=== PATIENT | male | born 1960 | race Caucasian/White ===

== ENCOUNTER 2022-04-21 07:08 | Outpatient (CLI) | payer BC | END 2022-04-21 07:09 | disposition home or self-care (01) | LOC: LAB.N 07:08 | PROVIDERS: ATTEND Physician Assistant | DX: Z53.9 Procedure and treatment not carried out, unspecified reason (principal) ==

== ENCOUNTER 2022-05-17 09:04 | Outpatient (CLI) | payer BC ==
--- NOTE | 2022-05-17 09:54 | SLEEP CARE CONSULTATION ---
Information from patient questionnaire entered by Colette Mcclellan MA. I have reviewed and concur with the information entered by Colette Mcclellan MA. This document represents the service I personally performed and the decisions made by me, Analisa Styles ARNP. History of Present Illness Service Date and Time: 05/17/2022 0904 Reason for Visit: New patient (ONSET 11/13/2016, NO PRIORS, ) Chief Complaint: reports: Snoring, Observed pauses in breathing Date of Onset: ON OFF 5 YEARS Usual bedtime: 930 PM Time it takes to fall asleep: 5 MINUTES Snores at night: Yes Observed to quit breathing while asleep: Yes Sleeps alone due to snoring: No Number of times waking at night: 6 X Reasons for waking at night: reports: Snoring, Gasping for air (once in a while), Pain, Bathroom Toss, Turn, or Twitch while sleeping: Yes (a little bit) Recalls having dreams: No Usually gets out of bed at: 0600 Feels refreshed in the morning: Yes (somewhat refreshed mostly) Morning headache: No Sleepy or fatigued during the day: No Ever fallen asleep while driving: No Takes day naps: No Dreams during day naps: Yes Prior sleep studies: No Additional HPI information: I had the pleasure of seeing JANICE MUÑIZ today regarding the possibility of him having a sleep disorder. His current complaints are observed pauses in breathing and snoring. He states his has encouraged him to come in to get checked due to his snoring, stopping breathing and gasping at the end of these pauses. He has been trying to pay more attention in the last 6 months. She is a new and is very concerned about these pauses in breathing. He is not as concerned but would like to check this out. He states he feels somewhat rested in the mornings. He feels energetic and alert during the day. He feels he is healthy overall. Patient states he did develop some high blood pressure about 10 years ago and was started on a low-dose of lisinopril. He states he does not like to take oral medication so he made some lifestyle changes. It was not very long and he was able to come off of the lisinopril and has not been back on blood pressure medication for the last 10 years. - Parasomnia Symptoms Ever been unable to move upon waking from sleep: No Walks in sleep: No Talks in sleep: No Ever acted out dreams in sleep: No Ever felt weak in the knees when startled or emotional: No Bothered by creepy, crawly, restless sensations in legs: Yes (often, leg cramps; when in bed) Problems with memory or concentration: No Subjective Initial [place] Sleepiness Scale score: 7 (05/17/2022) Past Medical History Past Medical History: reports: Hypertension (but has not needed medication for over ten years; rotator cuff surgery on both shoulders; both knees, meniscal surgery), Other (Heartburn, taking OTC meds) Social History 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 Patient is and lives in [place]. 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 Have you smoked in the past 12 months: No (NO) Cigarettes per day (20/pack): 20 Years of smokin Quit date: 2007 Smoking Pack Years: 30.0 Alcohol use: Yes Alcohol amount and frequency: 1 X DAILY Caffeine use: Yes Caffeine amount and frequency: 1 X DAILY Family History Family history of sleep disordered breathing: Yes Family Hx Sleep Apnea: Sibling: Snoring (MATERNAL SIDE), Sleep apnea - Treated Allergies and Home Medications Known drug allergies: No Drug allergies reviewed: Yes (NKDA) Home medication list reviewed: Yes Allergy and home medication list: Medications: OTC Omeprazole, prn Ibuprofen, prn Quinine, leg cramp pills, prn Review of Systems Weight gain over past 5 years: 20 lbs Cardiovascular: denies: high blood pressure Gastrointestinal: reports: heartburn Neurological: denies: headaches, head trauma Psychiatric: denies: anxiety, depression Ear/Nose/Throat: reports: tonsillectomy, wisdom teeth removed. denies: injury to nose Endocrine: reports: increased appetite. denies: thyroid disease Musculoskeletal: reports: joint pain, back pain, muscle pain or cramping Immunologic: denies: allergies to food or environment Physical Exam Vital signs obtained and entered by: ART MENJIVAR Blood Pressure: 127/75 (RESP 18, PULSE 57, RIGHT) Cuff size: wrist Heart Rate: 60 O2 Saturation: 97 (PAPER MASK) Height: 5 ft 11 in Weight: 215 lb (CLOTHES) Body Mass Index: 29.9 BMI Classification: Overweight Neck circumference: 15 (INCHES) Mouth and throat: narrow oropharynx Soft palate: long Hard palate: normal Uvula: long Uvula visualization: 25% Mallampati Class III Tongue: normal in size Tonsils: absent bilaterally Neck: normal w/o lymphadenopathy or thyromegaly Heart: regular rate and rhythm Lungs: clear bilaterally Impression and Plan 1. Suspected Obstructive Sleep Apnea-Hypopnea Syndrome, as suggested by a history of loud and irregular snoring, observed cessation of breath while asleep and gasping or choking in sleep. Narrow oropharynx and obesity are common pr edisposing factors for obstructive sleep apnea-hypopnea syndrome. I recommend proceeding to polysomnography to confirm the diagnosis and to assess severity. If the patient has significant sleep disordered breathing, a manual CPAP titration study will also be performed to find the optimal treatment pressure. I informed the patient of what the sleep studies involve and after some discussion, obtained agreement to proceed. The pathophysiology of obstructive sleep apnea-hypopnea syndrome was discussed with the patient and health risks of cardiovascular and cerebrovascular disease if not treated. Risks of drowsy driving discussed in detail and patient advised to avoid long distance driving and to lung puller at the first sign of drowsiness. Patient agreed to plan. * Schedule polysomnography * Avoid long distance driving or driving when feeling sleepy. * Avoid alcohol, sedative and muscle relaxant around bedtime. * Attempt to lose weight. * Review instructions provided by trained office staff on how to prepare for the sleep study. * Return for follow-up after sleep study completed. Counseling Topics: Weight loss health impact Visit Type: In Office Time Spent with Patient (minutes): 32 Provider Statement: I spent 100% of the Face to Face Visit with the patient with greater than 50% spent counseling the patient and coordination of care.
[2022-05-17 09:55] VITALS: BP 127/75
== END 2022-05-17 09:05 | disposition home or self-care (01) ==
LOC: SC 09:04
PROVIDERS: ATTEND Nurse Practitioner Family
DX: R06.83 Snoring (principal); R06.81 Apnea, not elsewhere classified; E66.3 Overweight; Z68.29 Body mass index [BMI] 29.0-29.9, adult; Z87.891 Personal history of nicotine dependence
CPT/HCPCS: 99203; 99212

== ENCOUNTER 2022-05-26 08:29 | Outpatient (CLI) | payer BC | END 2022-05-26 08:30 | disposition home or self-care (01) | LOC: SC 08:29 | PROVIDERS: ATTEND Nurse Practitioner Family | DX: G47.33 Obstructive sleep apnea (adult) (pediatric) (principal); R09.02 Hypoxemia | CPT/HCPCS: 95806 ==

== ENCOUNTER 2022-06-14 09:12 | Outpatient (CLI) | payer BC ==
--- NOTE | 2022-06-14 09:03 | SLEEP CARE CONSULTATION ---
Information from patient questionnaire entered by Colette Mcclellan MA. I have reviewed and concur with the information entered by Colette Mcclellan MA. This document represents the service I personally performed and the decisions made by , Analisa Styles ARNP. History of Present Illness Service Date and Time: 06/14/2022 0840 Initial [place] Sleepiness Scale score: 7 (05/17/2022) Current [place] Sleepiness Scale score: 5 Additional HPI information: JANICE MUÑIZ returns via video telehealth visit for follow up and results of the recently performed home sleep study. I explained the pathophysiology behind obstructive sleep apnea. We then spent quite a bit of time discussing different treatment options. For mild obstructive sleep apnea, surgery and oral appliance are alternatives to nasal CPAP therapy but in moderate or severe cases, nasal CPAP is the most effective and reliable treatment. Because apnea is primarily in supine position, then positional management therapy could be effective. Methods discussed such as positioning with pillows to prevent supine sleep. I reviewed the impact of weight changes on sleep apnea and strongly recommended losing weight. After some discussion, the patient opted to go with the nasal CPAP therapy. Nasal autoCPAP set at 4-15 cmH20 will be ordered with rationale explained. A manual titration study will be ordered if unable to find optimal pressure with office adjustments. I explained how CPAP machine works and what to expect when using the machine. Using CPAP every night in order to get used to it was emphasized. Patient advised to put CPAP mask on before getting into bed so as not to fall asleep without CPAP. To assist acclimation to CPAP use, it could also be used for a short time during day while reading or watching TV. The patient was instructed to call the CPAP supplier to discuss any mechanical problem that may occur. If the mask given is uncomfortable or is difficult to keep on through the night even with adjustment, contact the CPAP supplier as many will replace with another mask style if notified before 30 days. If snoring or perceives is not getting enough air or too much air from the machine, notify this office. Patient counseled not drink alcohol less than 4 hours before bedtime as it can increase snoring and apnea. Patient was cautioned about risks of drowsy driving until sleepiness symptoms resolve. Patient denies drowsy driving. Sleep Study - Results Type of Sleep Study: Home sleep study (F/U HST, 05/26/2022 [facility], POS,) Prior sleep studies: No Polysomnography/Home Sleep Study results: Physician Impression: The quality of the study is good. The length of the study is adequate (> 240 minutes). Please also see the tabulated and graphic data. 1. Obstructive Sleep Apnea-Hypopnea (ICD-10 G47.33), severe, with an AHI of 39.1/hr and dian SaO2 of 78%. During the study, the patient had 232 apneas (232 obstructive, 0 central, 0 mixed) and 26 hypopneas. The longest episode lasted 88.5 seconds. The respiratory events occurred more frequently during supine sleep (supine AHI was 70.6 and non-supine, 33.94). 2. Hypoxemia (ICD-10 R09.02), moderate, with the lowest oxygen saturation of 78 % and 43.3 minutes with SaO2 under 90%. Baseline oxygen saturation was normal (Average oxygen saturation was 93%). Allergies and Home Medications Home medication list reviewed: Yes (no changes) Review of Systems Review of systems same as previous: Yes (no changes) Physical Exam Vital signs obtained and entered by: ART MENJIVAR Height: 5 ft 11 in Weight: 200 lb (pt reported) Body Mass Index: 27.8 BMI Classification: Overweight Impression and Plan 1. Obstructive Sleep Apnea-Hypopnea Syndrome, severe, with lowest oxygen saturation of 78%. Obviously this is the cause of the patients symptoms of un refreshed sleep, and excessive daytime sleepiness. Positive pressure therapy could benefit his history of hypertension. As mentioned above, the patient will be started on nasal autoCPAP therapy with pressure set at 4-15 cmH2O. Compliance guidelines also reviewed. A copy of compliance guidelines will be given for reference at check out. Because the apnea is more severe supine, I instructed to avoid sleeping supine using pillow positioning until able to start CPAP use. 2. Hypoxemia, moderate, with the lowest oxygen saturation of 78 % and 43.3 minutes with SaO2 under 90%. His baseline oxygen saturation was normal with an average oxygen saturation of 93%. * Nasal auto CPAP therapy, pressure at 4-15 cm H2O. * Attempt to lose weight. * Avoid alcohol consumption near bedtime. * Avoid supine sleep until using CPAP. * The patient is again cautioned about driving until sleepiness completely resolves. * Return one month after CPAP obtained. I will assess response to therapy and compliance at that time. Counseling Topics: Weight loss health impact Visit Type: Telehealth Video Video Type: Doximity Patient Location: Car Location of Provider: Office Patient agrees and consents to this telehealth visit type: Yes Patient agrees to have their insurance billed: Yes Time Spent with Patient (minutes): 22 Provider Statement: I spent 100% of the Telehealth Video Call with the patient with greater than 50% spent counseling the patient and coordination of care.
== END 2022-06-14 09:13 | disposition home or self-care (01) ==
LOC: SC 09:12
PROVIDERS: ATTEND Nurse Practitioner Family
DX: G47.33 Obstructive sleep apnea (adult) (pediatric) (principal); R09.02 Hypoxemia; E66.3 Overweight; Z68.27 Body mass index [BMI] 27.0-27.9, adult

== ENCOUNTER 2023-07-20 08:57 | Outpatient (CLI) | payer MEDICARE ==
--- NOTE | 2023-07-20 18:29 | XRAY Report ---
PROCEDURE: Knee 4 View RT INDICATIONS: HISTORY OF TORN MENISCUS RIGHT KNEE TECHNIQUE: 4 views of the right knee(s) were acquired. COMPARISON: None. FINDINGS: Bones: No fractures or dislocations. No suspicious bony lesions. Moderate tricompartmental knee nba nt degeneration. Moderate joint space narrowing with weightbearing. Soft tissues: Trace knee joint effusion. No suspicious soft tissue calcifications or masses. IMPRESSION: Moderate degenerative joint disease. Reviewed by: Gunnar Rey MD on 07/20/2023 6:27 PM PDT Approved by: Gunnar Rey MD on 07/20/2023 6:27 PM PDT Station ID: [id number]
--- NOTE | 2023-07-21 09:23 | XRAY Report ---
PROCEDURE: Hips 2V BILAT INDICATIONS: HIP PAIN,RIGHT TECHNIQUE: 3 views of the hip were acquired. COMPARISON: None. FINDINGS: Bones: No fractures or dislocations. No suspicious bony lesions. Mild symmetrical hip joint degener ation bilaterally. Degenerative changes noted in the lower lumbar spine. Soft tissues: No suspicious soft tissue calcifications or masses. IMPRESSION: Mild osteoarthritis bilaterally. Reviewed by: Gunnar Rey MD on 07/21/2023 9:22 AM PDT Approved by: Gunnra Rey MD on 07/21/2023 9:22 AM PDT Station ID: [id number]
== END 2023-07-20 08:58 | disposition home or self-care (01) ==
LOC: DI 08:57
PROVIDERS: ATTEND Physician Assistant
DX: M17.11 Unilateral primary osteoarthritis, right knee (principal); M16.0 Bilateral primary osteoarthritis of hip; G89.29 Other chronic pain; Z87.828 Personal history of other (healed) physical injury and trauma

== ENCOUNTER 2023-07-28 07:21 | Outpatient (CLI) | payer MEDICARE ==
[2023-07-28 12:20] LABS: BASOPHILS % (AUTO) 0.8 %; EOSINOPHILS # (AUTO) 0.3 10^3/uL (0.0-0.7); EOSINOPHILS % (AUTO) 4.8 %; HCT - HEMATOCRIT 45.2 % (42.0-52.0); HGB - HEMOGLOBIN 15.1 g/dL (14.0-18.0); LYMPHOCYTES % (AUTO) 19.7 %; MEAN CORPUSCULAR HEMOGLOBIN 30.3 pg (27.0-31.0); MEAN CORPUSCULAR HGB CONC 33.4 g/dL (32.0-36.0); MEAN CORPUSCULAR VOLUME 90.8 fL (80.0-94.0); MEAN PLATELET VOLUME 11.2 fL (7.4-11.4); MONOCYTES # (AUTO) 0.5 10^3/uL (0.0-1.0); MONOCYTES % (AUTO) 9.8 %; NEUTROPHILS # (AUTO) 3.3 10^3/uL (1.5-6.6); NEUTROPHILS % (AUTO) 64.3 %; PLT - PLATELET COUNT 257 10^3/uL (130-450); RED BLOOD COUNT 4.98 10^6/uL (4.70-6.10); RED CELL DISTRIBUTION WIDTH 13.1 % (12.0-15.0); WHITE BLOOD COUNT 5.2 x10^3/uL (4.8-10.8)
[2023-07-28 12:44] LABS: ALBUMIN 4.3 g/dL (3.2-5.5); ALBUMIN/GLOBULIN RATIO 1.8 (1.0-2.2); ALKALINE PHOSPHATASE 68 IU/L (42-121); ALT ALANINE AMINOTRANSFERASE 16 IU/L (10-60); AST ASPARTATE AMINOTRANSFERASE 16 IU/L (10-42); BILIRUBIN,TOTAL 0.7 mg/dL (0.2-1.0); BUN - BLOOD UREA NITROGEN 20 mg/dL (6-20); CALCIUM 9.8 mg/dL (8.5-10.3); CARBON DIOXIDE - CO2 27 mmol/L (21-32); CHLORIDE 106 mmol/L (101-111); CHOL/HDL RATIO 3.4 (<5.0); CHOLESTEROL 185 mg/dL; CREATININE 0.8 mg/dL (0.6-1.3); GFR - MDRD 97 (>89); GLUCOSE 102 mg/dL (74-104); HDL CHOLESTEROL 55 mg/dL; LDL CHOLESTEROL,CALCULATED 109 mg/dL; POTASSIUM 4.9 mmol/L (3.5-4.5); SODIUM 139 mmol/L (135-145); TOTAL PROTEIN 6.7 g/dL (6.4-8.9); TRIGLYCERIDES 103 mg/dL (48-352); VLDL CHOLESTEROL 21 mg/dL
== END 2023-07-28 07:22 | disposition home or self-care (01) ==
LOC: LAB.N 07:21
PROVIDERS: ATTEND Physician Assistant
DX: I10 Essential (primary) hypertension (principal); G47.33 Obstructive sleep apnea (adult) (pediatric); E78.2 Mixed hyperlipidemia; Z12.5 Encounter for screening for malignant neoplasm of prostate
CPT/HCPCS: 36415; 80053; 80061; 85025; G0103; 83721; 84153

== ENCOUNTER 2023-10-12 14:15 | Outpatient (CLI) | payer MEDICARE ==
--- NOTE | 2023-10-13 09:41 | XRAY Report ---
PROCEDURE: Hand 3 View BILAT INDICATIONS: BILAT HAND PAIN TECHNIQUE: 3 views of each hand(s) acquired. COMPARISON: None. FINDINGS: Bones: No fractures or dislocations. No suspicious bony lesions. Mild joint space loss, slight sp urring, and subcortical cystic change involving the right first IP joint. Mild left first CMC joint s pace loss with slight osteophytosis. Mild osteophytosis at the left radiocarpal articulation. Soft tissues: No suspicious soft tissue calcifications or masses. IMPRESSION: Minor, scattered, early osteoarthritic changes. Reviewed by: Valentina Cavazos MD on 10/13/2023 9:40 AM [facility] Approved by: Valentina Cavazos MD on 10/13/2023 9:40 AM [facility] Station ID: [id number]
== END 2023-10-12 23:59 | disposition home or self-care (01) ==
LOC: DI.WOS 14:15
PROVIDERS: ATTEND Physician Assistant Surgical
DX: M18.0 Bilateral primary osteoarthritis of first carpometacarpal joints (principal)